=== PATIENT | male | born 1980 | race African-American/Black ===

== ENCOUNTER 2024-06-01 10:36 | Emergency (ER) | payer SELFPAY ==
[~2024-06-01] VITALS: Ht 175.3 cm; Wt 117.9 kg
--- NOTE | 2024-06-01 10:47 | ERN ---
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 NO FEVER NO CHILLS NO NAUSEA VOMITING. HE WAS TOLD TO GO TO THE EMERGENCY ROOM TO GET CLEARANCE BACK TO WORK. STATES HE SAW HIS PRIMARY CARE DOCTOR WHO TOLD HIM TO GO TO URGENT CARE. URGENT CARE DID AN EKG AND SOME LABS TOLD HIM THERE WAS NO SIGNS OF A STROKE OR VISION CHANGES. HE IS NOW HERE FOR A 2ND OPINION. PUPILS ARE EQUAL AND REACTIVE TO LIGHT, NIH IS 0 GAIT IS STEADY TO TRIAGE ROOM. PATIENT DOES NOT HAVE A HEADACHE AT THIS TIME. EOMS INTACT TO EYES Home Meds Active Scripts Enalapril Maleate (Enalapril Maleate) 10 Mg Tablet, 1 TAB PO DAILY for 30 Days, #30 TAB 0 Refills Prov:MEG GUAMAN SENIOR [employer] DEVELOPER 06/01/24 Past Medical History RN Note Reviewed/Agreed w/PFSH: Yes Review of System Dictation CONSTITUTIONAL: NEGATIVE EXCEPT FOR HPI HEAD/FACE: NEGATIVE EXCEPT FOR HPI EENT: NEGATIVE EXCEPT FOR HPI DILATED LEFT PUPIL WITH VISION CHANGE RESPIRATORY: NEGATIVE EXCEPT FOR HPI GASTROINTESTINAL/ABDOMINAL: NEGATIVE EXCEPT FOR HPI GENITOURINARY: NEGATIVE EXCEPT FOR HPI MUSCULOSKELETAL: NEGATIVE EXCEPT FOR HPI INTEGUMENTARY: NEGATIVE EXCEPT FOR HPI NEUROLOGICAL/PSYCH: NEGATIVE EXCEPT FOR HPI HEMATOLOGIC/LYMPHATIC: NEGATIVE EXCEPT FOR HPI ALL SYSTEMS NEGATIVE, EXCEPT NOTED ABOVE. 13 POINT REVIEW OF SYSTEMS ASSESSED AND ALL NEGATIVE EXCEPT FOR ABOVE. Initial Vital Sign VS Vital Signs Date Time Temp Pulse Resp B/P (MAP) Pulse Ox O2 Delivery O2 Flow Rate FiO2 06/01/24 10:49 98.1 103 20 162/103 99 Room Air 0 Physical Exam Dictation VITAL SIGNS REVIEWED GENERAL APPEARANCE: ALERT, ORIENTED X 3, NO ACUTE DISTRESS, WELL DEVELOPED, NOURISHED. HEAD AND FACE: NON-TRAUMATIC. EYES: PERRL, PINK CONJUNCTIVAS, EYELID NO TRAUMA, ANTERIOR CHAMBER WITH ARCUS SENILIS. EOMS INTACT PERRLA EARS: PINNAS INTACT AND NO SIGNS OF TRAUMA OR ERYTHEMA EAR CANALS CLEAR AND NO DISCHARGE TM NO ERYTHEMA NOSE: NO DISCHARGE, NO BLEEDING. OROPHARYNX: MOUTH NORMAL, TONGUE PINK, PHARYNX CLEAR,NO ERYTHEMA, TONSILS NO EXUDATES, NO ABSCESSES NOTED, MUCOUS MEMBRANE MOIST NECK: SUPPLE, NON-TENDER, NO THYROMEGALY, NO MASSES, NO JVD, NO BRUITS BREAST:DEFERRED CHEST:NO TENDERNESS, NO CREPITUS, NO PARADOXICAL MOVEMENT, NO RETRACTIONS LUNGS:CLEAR, WELL-VENTILATED, SYMMETRIC, NO RALES, NO WHEEZING, NO RHONCHI, NO STRIDOR, GOOD BREATH SOUNDS BILATERALLY HEART: REGULAR RATE, REGULAR RHYTHM, NO MURMUR, NO GALLOPS VASCULAR: NO PERIPHERAL EDEMA, ABDOMEN: SOFT, POSITIVE BOWEL SOUNDS, NONDISTENDED, NO GUARDING, NONTENDER, NO REBOUND, NO MASSES NO HEPATOMEGALY, NO SPLENOMEGALY, NO SHER'S SIGN, NO HERNIAS. RECTAL: DEFERRED GENITAL: DEFERRED NEUROLOGICAL: NORMAL SPEECH, MOTOR FUNCTION INTACT, SENSORY FUNCTION INTACT NIH IS 0 MUSCULOSKELETAL: NECK NONTENDER, FULL RANGE OF MOTION, BACK NONTENDER, FULL RANGE OF MOTION, EXTREMITIES: NONTENDER, FULL RANGE OF MOTION SKIN: COLOR PINK, DRY, NO TURGOR, NO RASH, NO LACERATIONS, NO ABRASIONS, NO CONTUSIONS. LYMPHATIC: DEFERRED Results (Laboratory/Radiology) Laboratory/Radiology PATIENT: BHARTI CONTRERAS MR#: [id number] : 1980 SEX: M AGE: 43 LOCATION: [facility] ORDER 1044 STATUS: [facility] REPORT#: [id number] SERVICE 1043 REASON: RUNNING A FRONTAL HEADACHE WITH RESOLVE VISION CHANGES LEFT EYE ORDERING PHYSICIAN: MEG GUAMAN NP PROCEDURE: HEAD WO - CT HEAD/BRAIN W/O CONTRAST Exam Type: CT HEAD/BRAIN W/O CONTRAST Clinical Information: RUNNING A FRONTAL HEADACHE WITH RESOLVE VISION CHANGES LEFT EYE Comparison: None CT Dose Index (CTDI): 57.33 mGy Dose Length Product (DLP): 956.79 total mGy-cm Findings: The examination is unremarkable. Gay-white matter junction is preserved. No intra or extra axial lesions or fluid collections are seen. Specifically, gay and white matter are normal in signal characteristics with normal caliber of ventricles and periventricular cisterns with no evidence of intra or or extra-axial hemorrhage, lacunar infarct, or major territorial infarct, mass, or other abnormality. There are no infarcts. There are no hemorrhages. Periventricular white matter locations are preserved. The orbital contents and structures of the posterior fossa are intact. Impression: Normal CT of the head. This study was performed using dose reduction techniques to include automated exposure control and/or adjustment of the mA and/or kV according to patient size. Labs Reviewed?: Yes ED Course ED Course Orders Procedure Category Date Status Time Visual Acuity Test CPOE 06/01/24 Transmitted (Er) 10:43 Ct Head/Brain W/O CT 06/01/24 Resulted Contrast 10:43 Enalapril Maleate PHA 06/01/24 Logged (Vasotec) 12:00 Enalapril Maleate PHA 06/01/24 Complete (Vasotec) 11:57 Current Medications Medications (Trade) Dose Ordered Sig/Gino Route PRN Reason Start Time Stop Time Status Last Admin Dose Admin Enalapril Maleate (Vasotec) 10 mg ONCE PO 06/01/24 12:00 07/01/24 11:59 UNV Enalapril Maleate (Vasotec) 10 mg STK-MED ONCE .ROUTE 06/01/24 11:57 06/01/24 11:57 DC Vital Signs Date Time Temp Pulse Resp B/P (MAP) Pulse Ox O2 Delivery O2 Flow Rate FiO2 06/01/24 10:49 98.1 103 20 162/103 99 Room Air 0 1150/SPOKE WITH PATIENT AT LENGTH REGARDING VISUAL ACUITY AND CT. HE WAS MADE AWARE THESE FINDINGS ARE NEGATIVE AND THERE IS NO EMERGENT INDICATION OF ANY VISION CHANGES I DID BRING IT TO HIS ATTENTION HIS BLOOD PRESSURE WHICH IS 163/103 HE SAID HIS DOCTOR AT HOME IN [place] TELLS HIM HE IS PREHYPERTENSIVE HE HAS NEVER BEEN TREATED. I ADVISED HIM, I WOULD BE STARTING HIM ON ENALAPRIL AND HAVE HIM FOLLOW UP WITH HIS DOCTOR WHEN HE GETS BACK HOME NEXT WEEK. Medical Decision Making MDM 1150/MEDICAL DECISION-MAKING BASED ON VISUAL ACUITY AND CT OF THE HEAD. CT NEGATIVE VISUAL ACUITY NORMAL PATIENT WAS TREATED FOR HYPERTENSION DUE TO BLOOD PRESSURE 163/103. STRONGLY ADVISED TO SEE HIS PRIMARY CARE DOCTOR WHEN HE RETURNS HOME TO [place] FOR MANAGEMENT. PATIENT NEUROLOGICALLY INTACT AND ALL QUESTIONS ANSWERED DX & DISP Disposition: Discharge Departure Impression: Primary Impression: Uncontrolled hypertension Condition: Stable Scripts Enalapril Maleate (Enalapril Maleate) 10 Mg Tablet 1 TAB PO DAILY for 30 Days, #30 TAB 0 Refills Prov: MEG GUAMAN NP 06/01/24 Additional Instructions: FOLLOW-UP WITH PRIMARY CARE PROVIDER IN 1 TO 2 DAYS. TAKE MEDICATIONS DIRECTED HERE IN THE EMERGENCY ROOM. OKAY TO CONTINUE HOME MEDICATIONS UNLESS OTHERWISE DISCUSSED DURING YOUR VISIT IN THE EMERGENCY ROOM TODAY. RETURN TO YOUR NEAREST EMERGENCY ROOM IF SYMPTOMS WORSEN OR IF THERE IS NO IMPROVEMENT. CALL 911 IF YOU NEED IMMEDIATE ASSISTANCE. TAKE TYLENOL OR MOTRIN [id number] NEEDED AND IF NO CONTRAINDICATIONS ARE PRESENT. INCREASE ORAL HYDRATION. A WOUND CULTURE OR URINE CULTURE WAS ORDERED HERE IN THE EMERGENCY ROOM DEPARTMENT PLEASE FOLLOW-UP WITH PRIMARY CARE PROVIDER AND ADVISE THEM TO GET REPEAT PORTS FROM OUR FACILITY. IF YOU HAD ANY ARAM WRAP/SPLINTS THAT WERE APPLIED HERE, PLEASE DO NOT REMOVE THEM UNTIL YOU SEE YOUR PRIMARY CARE OR SPECIALTY. TAKE BLOOD PRESSURE MEDICATIONS DIRECTED DAILY. FOLLOW UP WITH YOUR PRIMARY CARE DOCTOR WHEN YOU GET HOME TO [place] FOR MANAGEMENT OF YOUR BLOOD PRESSURE Referrals: SELF,REFERRAL (PCP) Time of Disposition: 11:53 I have reviewed the case, and I agree with, Diagnosis and Plan MEG GUAMAN NP Jun 01, 2024 10:47 CHRISTOFER SCHWARZ DO Jun 01, 2024 12:01
--- NOTE | 2024-06-01 11:42 | HMCIMG ---
Exam Type: CT HEAD/BRAIN W/O CONTRAST Clinical Information: RUNNING A FRONTAL HEADACHE WITH RESOLVE VISION CHANGES LEFT EYE Comparison: None CT Dose Index (CTDI): 57.33 mGy Dose Length Product (DLP): 956.79 total mGy-cm Findings: The examination is unremarkable. Gay-white matter junction is preserved. No intra or extra axial lesions or fluid collections are seen. Specifically, gay and white matter are normal in signal characteristics with normal caliber of ventricles and periventricular cisterns with no evidence of intra or or extra-axial hemorrhage, lacunar infarct, or major territorial infarct, mass, or other abnormality. There are no infarcts. There are no hemorrhages. Periventricular white matter locations are preserved. The orbital contents and structures of the posterior fossa are intact. Impression: Normal CT of the head. This study was performed using dose reduction techniques to include automated exposure control and/or adjustment of the mA and/or kV according to patient size.
[2024-06-01] MEDS ORDERED: ENAL-89 PO (11:53)
[2024-06-01] MEDS: ENALAPRIL MALEATE 10 MG TABLET ONE (11:59)
[2024-06-01] MEDS ORDERED: ENALAPRIL MALEATE 10 MG TABLET PO SCH (12:00)
[2024-06-01 12:01] VITALS: BP 153/99; PULSE 88; RESP 18; TEMP 98; O2SAT 99
== END 2024-06-01 12:08 | disposition home or self-care (01) ==
LOC: EDH 10:36
DX: I10 Essential (primary) hypertension (principal); Z79.899 Other long term (current) drug therapy
CPT/HCPCS: 70450; 99284